=== PATIENT | female | born 1985 | race Caucasian/White ===

== ENCOUNTER 2021-05-22 11:18 | Inpatient (IN) | payer OTHER ==
[2021-05-22] MEDS ORDERED: LORazepam 2 MG/ML INJ IV STA (11:35)
[2021-05-22] MEDS ORDERED: SODIUM CHLORIDE 0.9% 1,000 ML IV STA (11:35)
--- NOTE | 2021-05-22 11:43 | ED ---
Alcohol HPI - General Chief Complaint: Alcohol Stated Complaint: ETOH Time Seen by Provider: 05/22/21 11:25 Source: patient, EMS Mode of arrival: EMS Limitations: altered mental status - History of Present Illness Initial Comments: Patient is a 36-year-old female with history of alcohol abuse, presenting to the emergency department via EMS for alcohol intoxication. Patient states she went to the [facility] last night and has rejected as she was too intoxicated. She presents here this morning to detox so she can go back. Patient states she's only had 2 shots this morning but appears very intoxicated, slurring words. She states she just recently got back from [place] a few weeks ago for detox. She denies any pains anywhere, states she just feels shaky and very anxious. She denies any chest pain or shortness of breath, no abdominal pain, no nausea or vomiting. She denies any falls. She denies any other further complaints. Upon arrival to the ER, her vitals are stable. - Related Data Home Medications Medication Instructions Recorded Confirmed Dextroamphetamine/Amphetamine 10 mg PO BID 05/22/21 05/22/21 [Adderall] LORazepam [Ativan] 1 mg PO DAILY PRN 05/22/21 05/22/21 Allergies Allergy/AdvReac Type Severity Reaction Status Date / Time No Known Allergies Allergy Verified 05/22/21 13:08 Review of Systems ROS Statement: Those systems with pertinent positive or pertinent negative responses have been documented in the HPI. ROS Other: All systems not noted in ROS Statement are negative. Past Medical History Past Medical History: No Reported History History of Any Multi-Drug Resistant Organisms: None Reported Past Surgical History: No Surgical Hx Reported Past Psychological History: ADD/ADHD, Anxiety Smoking Status: Never smoker Past Alcohol Use History: None Reported Past Drug Use History: None Reported General Exam - General Exam Comments Initial Comments: GENERAL: Patient is well-developed and well-nourished. Patient is nontoxic and in no acute distress, appears intoxicated. HEAD: Atraumatic, normocephalic. EYES: Pupils equal round and reactive to light, extraocular movements intact, sclera anicteric, conjunctiva are normal. Eyelids were unremarkable. ENT: TMs normal, nares patent, oropharynx clear without exudates. Moist mucous membranes. NECK: Normal range of motion, supple without lymphadenopathy or JVD. LUNGS: Unlabored respirations. Breath sounds clear to auscultation bilaterally and equal. No wheezes rales or rhonchi. HEART: Regular rate and rhythm without murmurs, rubs or gallops. ABDOMEN: Soft, nontender, normoactive bowel sounds. No guarding, no rebound. No masses appreciated. : Deferred MUSCULOSKELETAL: Normal extremities with adequate strength and normal range of motion, no pitting or edema. No clubbing or cyanosis. NEUROLOGICAL: Patient is alert and oriented x 3. Motor and sensory are also intact. Cranial nerves II through XII grossly intact. Symmetrical smile. PSYCH: Appears intoxicated. SKIN: Warm, Dry, normal turgor, no rashes or lesions noted. Limitations: altered mental status Course Vital Signs 05/22/21 05/22/21 11:22 12:35 Temperature 98.7 F Pulse Rate 104 H 100 Respiratory 22 18 Rate Blood Pressure 115/95 104/72 O2 Sat by Pulse 95 95 Oximetry Medical Decision Making - Medical Decision Making Patient is a 36-year-old female here from the [facility] for alcohol intoxication. She was rejected from there last night and presents today for detox. Her vitals are stable, she has no acute complaints other than feeling shaky and anxious. BAT is .324. Patient's labs show a serum alcohol of 474, transaminitis. She did mention that she's been having thoughts of suicide, she has no plans or attempts. Patient will be admitted for alcohol intoxication, when sober, we'll consult EPS. Patient accepted by Dr. Liriano. Patient discussed with Dr. Easton. - Lab Data Result diagrams: 05/22/21 11:52 05/22/21 11:52 Lab Results 05/22/21 05/22/21 Range/Units 11:52 11:52 WBC 5.0 (3.8-10.6) k/uL RBC 4.92 (3.80-5.40) m/uL Hgb 15.9 (11.4-16.0) gm/dL Hct 46.0 (34.0-46.0) % MCV 93.6 (80.0-100.0) fL MCH 32.3 (25.0-35.0) pg MCHC 34.5 (31.0-37.0) g/dL RDW 13.4 (11.5-15.5) % Plt Count 230 (150-450) k/uL MPV 7.2 Neutrophils % 52 % Lymphocytes % 38 % Monocytes % 6 % Eosinophils % 2 % Basophils % 0 % Neutrophils # 2.6 (1.3-7.7) k/uL Lymphocytes # 1.9 (1.0-4.8) k/uL Monocytes # 0.3 (0-1.0) k/uL Eosinophils # 0.1 (0-0.7) k/uL Basophils # 0.0 (0-0.2) k/uL Sodium 147 H (137-145) mmol/L Potassium 4.1 (3.5-5.1) mmol/L Chloride 103 (98-107) mmol/L Carbon Dioxide 30 (22-30) mmol/L Anion Gap 14 mmol/L BUN 11 (7-17) mg/dL Creatinine 0.48 L (0.52-1.04) mg/dL Est GFR (CKD-EPI)AfAm >90 (>60 ml/min/1.73 sqM) Est GFR (CKD-EPI)NonAf >90 (>60 ml/min/1.73 sqM) Glucose 105 H (74-99) mg/dL Calcium 9.6 (8.4-10.2) mg/dL Total Bilirubin 0.6 (0.2-1.3) mg/dL AST 396 H (14-36) U/L ALT 427 H (4-34) U/L Alkaline Phosphatase 99 (38-126) U/L Total Protein 8.0 (6.3-8.2) g/dL Albumin 4.9 (3.5-5.0) g/dL Serum Alcohol 474 H* mg/dL Disposition Clinical Impression: Alcohol intoxication, Suicidal ideation Disposition: ADMITTED IP TO THIS [facility] Condition: Stable Decision Date: 05/22/21 Decision Time: 12:22
[2021-05-22 12:07] LABS: Basophils % (A) 0 %; Eosinophils # (A) 0.1 k/uL (0-0.7); Eosinophils % (A) 2 %; HGB 15.9 gm/dL (11.4-16.0); Lymphocytes # (A) 1.9 k/uL (1.0-4.8); Lymphocytes % (A) 38 %; MCH 32.3 pg (25.0-35.0); MCHC 34.5 g/dL (31.0-37.0); MCV 93.6 fL (80.0-100.0); Mean Platelet Volume 7.2; Monocytes # (A) 0.3 k/uL (0-1.0); Monocytes % (A) 6 %; Neutrophils # (A) 2.6 k/uL (1.3-7.7); Neutrophils % (A) 52 %; Platelet Count 230 k/uL (150-450); RBC 4.92 m/uL (3.80-5.40); RDW 13.4 % (11.5-15.5)
[2021-05-22] MEDS ORDERED: LORazepam 2 MG/ML INJ IV PRN ×2 (12:19)
[2021-05-22] MEDS ORDERED: THIAMINE 100 MG/ML 2 ML VIAL IM STA (12:19)
[2021-05-22] MEDS ORDERED: ACETAMINOPHEN TAB 325 MG TAB PO PRN (12:20)
[2021-05-22] MEDS ORDERED: ONDANSETRON 4 MG/2 ML VIAL IVP PRN ×2 (12:20→19:04)
[2021-05-22] MEDS ORDERED: NALOXONE 0.4 MG/ML 1 ML VIAL IV PRN (12:20)
[2021-05-22 12:29] LABS: ALT 427 U/L (4-34); AST 396 U/L (14-36); African American GFR (CKD) >90 (>60 ml/min/1.73 sqM); Albumin 4.9 g/dL (3.5-5.0); Alkaline Phosphatase 99 U/L (38-126); Anion Gap 14 mmol/L; Blood Urea Nitrogen 11 mg/dL (7-17); Calcium 9.6 mg/dL (8.4-10.2); Carbon Dioxide 30 mmol/L (22-30); Chloride 103 mmol/L (98-107); Glucose 105 mg/dL (74-99); Non-African American GFR(CKD) >90 (>60 ml/min/1.73 sqM); Potassium 4.1 mmol/L (3.5-5.1); Sodium 147 mmol/L (137-145); Total Bilirubin 0.6 mg/dL (0.2-1.3)
[2021-05-22 13:03] LABS: Alcohol 474 mg/dL
[2021-05-22 13:50] LABS: Appearance,Urine Cloudy (Clear); Bacteria,Urine Rare /hpf; Bilirubin,Urine Negative (Negative); Blood,Urine Negative (Negative); Budding Yeast,Urine Moderate /hpf; Color,Urine Yellow; Glucose,Urine (UA) Negative (Negative); Ketones,Urine Negative (Negative); Leukocyte Esterase,Urine Moderate (Negative); Mucus,Urine Few /hpf; Nitrite,Urine Negative (Negative); PH, Urine 6.5 (5.0-8.0); Protein,Urine Trace (Negative); RBC,Urine 6 /hpf (0-5); Specific Gravity,Urine 1.009 (1.001-1.035); Squamous Epithelial Cell,Urine 18 /hpf (0-4); Urobilinogen,Urine <2.0 mg/dL (<2.0); WBC,Urine 11 /hpf (0-5)
--- NOTE | 2021-05-22 13:54 | P.HPIM ---
History of Present Illness Patient is a pleasant 14-year-old female came in intoxicated earlier today morning with highly elevated blood alcohol levels. Patient wanted to detox and wants to quit alcohol altogether. Patient admits to drinking 1 pint of hard liquor daily. Patient is alert oriented 3 by the time a valid the patient patient is requesting help with alcohol withdrawals. Patient denied any previous withdrawals in the past. Patient denied any abdominal pain nausea vomiting. REVIEW OF SYSTEMS: CONSTITUTIONAL: No fever, no malaise, no fatigue. HEENT: No recent visual problems or hearing problems. Denied any sore throat. CARDIOVASCULAR: No chest pain, orthopnea, PND, no palpitations, no syncope. PULMONARY: No shortness of breath, no cough, no hemoptysis. GASTROINTESTINAL: No diarrhea, no nausea, no vomiting, no abdominal pain. NEUROLOGICAL: No headaches, no weakness, no numbness. HEMATOLOGICAL: Denies any bleeding or petechiae. GENITOURINARY: Denies any burning micturition, frequency, or urgency. MUSCULOSKELETAL/RHEUMATOLOGICAL: Denies any joint pain, swelling, or any muscle pain. ENDOCRINE: Denies any polyuria or polydipsia. The rest of the 14-point review of systems is negative. PHYSICAL EXAMINATION: GENERAL: The patient is alert and oriented x3, not in any acute distress. Well developed, well nourished. HEENT: Pupils are round and equally reacting to light. EOMI. No scleral icterus. No conjunctival pallor. Normocephalic, atraumatic. No pharyngeal erythema. No thyromegaly. CARDIOVASCULAR: S1 and S2 present. No murmurs, rubs, or gallops. PULMONARY: Chest is clear to auscultation, no wheezing or crackles. ABDOMEN: Soft, nontender, nondistended, normoactive bowel sounds. No palpable organomegaly. MUSCULOSKELETAL: No joint swelling or deformity. EXTREMITIES: No cyanosis, clubbing, or pedal edema. NEUROLOGICAL: Gross neurological examination did not reveal any focal deficits. SKIN: No rashes. Assessment and plan -Alcohol abuse: Patient is willing to quit alcohol. -Alcohol withdrawal: Patient will be continued on thiamine multivitamin supplementation and Ativan CW protocol will be monitored for alcohol withdrawal has significant withdrawal symptoms are expected to be tomorrow afternoon, if she doesn't have any withdrawals by then probably can be discharged at that time -Transaminitis: Secondary to alcoholic hepatitis which is expected to improve with cessation of alcohol -Tachycardia secondary to dehydration: Continue with IV fluids DVT prophylaxis: Early ambulation, GI prophylaxis Protonix Past Medical History Past Medical History: No Reported History History of Any Multi-Drug Resistant Organisms: None Reported Past Surgical History: No Surgical Hx Reported Past Psychological History: ADD/ADHD, Anxiety Smoking Status: Never smoker Past Alcohol Use History: None Reported Past Drug Use History: None Reported Medications and Allergies Home Medications Medication Instructions Recorded Confirmed Type Dextroamphetamine/Amphetamine 10 mg PO BID 05/22/21 05/22/21 History [Adderall] LORazepam [Ativan] 1 mg PO DAILY PRN 05/22/21 05/22/21 History Allergies Allergy/AdvReac Type Severity Reaction Status Date / Time No Known Allergies Allergy Verified 05/22/21 13:08 Physical Exam Vitals: Vital Signs Temp Pulse Resp BP Pulse Ox 05/22/21 13:44 108 H 20 106/75 98 05/22/21 13:27 94/67 95 05/22/21 12:35 100 18 104/72 95 05/22/21 11:22 98.7 F 104 H 22 115/95 95 Intake and Output 05/21/21 05/22/21 05/22/21 22:59 06:59 14:59 Other: Weight 72.575 kg Results CBC & Chem 7: 05/22/21 11:52 05/22/21 11:52 Labs: Abnormal Lab Results - Last 24 Hours (Table) 05/22/21 Range/Units 11:52 Sodium 147 H (137-145) mmol/L Creatinine 0.48 L (0.52-1.04) mg/dL Glucose 105 H (74-99) mg/dL AST 396 H (14-36) U/L ALT 427 H (4-34) U/L Serum Alcohol 474 H* mg/dL
[2021-05-22 14:00] LABS: Amphetamine Screen,Urine Not Detected (NotDetected); Barbiturate Screen,Urine Not Detected (NotDetected); Benzodiazepines Screen,Urine Not Detected (NotDetected); Cocaine Screen,Urine Not Detected (NotDetected); Methadone Screen, Urine Not Detected (NotDetected); Opiate Screen,Urine Not Detected (NotDetected); Oxycodone Screen, Urine Not Detected (NotDetected); Phencyclidine Screen,Urine Not Detected (NotDetected); Tricyclic Antidepressant,Urine Not Detected (NotDetected); Urn Cannabinoid Scrn Not Detected (NotDetected)
[2021-05-22] MEDS: SODIUM CHLORIDE 0.9% 1,000 ML IV SCH (14:24)
[2021-05-22] MEDS: LORazepam 2 MG/ML INJ IV PRN ×3 (14:24→22:28)
[2021-05-22] MEDS: PANTOPRAZOLE 40 MG/10 ML VIAL IVP SCH (14:24)
[2021-05-22] MEDS: THIAMINE 100 MG TAB PO SCH (18:26)
[2021-05-23] MEDS: SODIUM CHLORIDE 0.9% 1,000 ML IV SCH ×2 (00:10→07:27)
[2021-05-23 02:15] VITALS: RESP 16
[2021-05-23] MEDS: LORazepam 2 MG/ML INJ IV PRN ×3 (02:27→07:36)
[2021-05-23] MEDS: THIAMINE 100 MG TAB PO SCH (07:18)
[2021-05-23] MEDS: PANTOPRAZOLE 40 MG/10 ML VIAL IVP SCH (07:25)
[2021-05-23] MEDS ORDERED: ONDANSETRON ODT 4 MG TAB PO PRN (09:59)
[2021-05-23] MEDS: LORazepam 1 MG TAB PO PRN ×2 (10:25→14:57)
[2021-05-23 10:27] LABS: ALT 295 U/L (4-34); AST 221 U/L (14-36); African American GFR (CKD) >90 (>60 ml/min/1.73 sqM); Anion Gap 7 mmol/L; Blood Urea Nitrogen 10 mg/dL (7-17); Calcium 8.7 mg/dL (8.4-10.2); Carbon Dioxide 31 mmol/L (22-30); Chloride 97 mmol/L (98-107); Glucose 133 mg/dL (74-99); Non-African American GFR(CKD) >90 (>60 ml/min/1.73 sqM); Potassium 3.4 mmol/L (3.5-5.1); Sodium 135 mmol/L (137-145)
[2021-05-23] MEDS ORDERED: POTASSIUM CHLORIDE ER 20 MEQ TAB.ER PO STA (12:20)
[2021-05-23] MEDS ORDERED: CITALOPRAM HYDROBROMIDE 10 MG TAB PO SCH (12:30)
[2021-05-23] MEDS: chlordiazePOXIDE 25 MG CAP PO SCH ×2 (12:34→14:57)
[2021-05-23 15:05] VITALS: BP 116/80; PULSE 121; TEMP 98.8
--- NOTE | 2021-05-24 03:08 | P.DS ---
Providers Date of admission: 05/22/21 12:16 Expected date of discharge: 05/23/21 Attending physician: Ofelia Liriano Primary care physician: Marina Stokes Hospital Course: Final diagnosis -Alcohol abuse -Alcohol withdrawal -Transaminitis: Secondary to alcoholic hepatitis which is expected to improve with cessation of alcohol -Tachycardia secondary to dehydration -Anxiety -full code Discharge disposition Patient is being discharged in a stable condition with guarded prognosis to home. Patient will follow-up with Dr. Stokes upon discharge. Patient will also be returning to [facility] on discharge for admission for alcohol rehab. Total time taken is greater than 35 minutes. Hospital Course This is a 36-year-old female who was recently admitted with acute alcohol intoxication with acute withdrawals and was being closely monitored. Patient was maintained on CIWA protocol and states that she takes Ativan 1mg daily at home for anxiety and will continue. Gave a script for librium taper on discharge and patient refused. Patient is going to [facility] for alcohol rehab. Currently no reports of chest pain, shortness of breath, or palpitations. Patient is afebrile. No reports of nausea or vomiting and patient is tolerating diet. Patient will be discharged to [facility] today. On exam vital signs are stable. Cardio S1, S2 are muffled. Respiratory shows diminished breath sounds at the bases with no wheezing or rhonchi noted. Abdomen is soft and nontender. Nervous system shows no focal deficits. Please refer to medication reconciliation sheet for a list of medications. Patient Condition at Discharge: Stable Plan - Discharge Summary Discharge Rx Participant: Yes New Discharge Prescriptions: New Citalopram Hydrobromide [CeleXA] 10 mg PO DAILY #30 tab Thiamine [Vitamin B-1] 100 mg PO BID-W/MEALS #60 tab Ondansetron Odt [Zofran ODT] 4 mg PO Q8HR PRN #12 tab PRN Reason: Nausea chlordiazePOXIDE HCl [Librium] 25 mg PO TID #12 cap Acetaminophen Tab [Tylenol] 650 mg PO Q6HR PRN tab PRN Reason: Mild Pain Or Fever > 100.5 Continue LORazepam [Ativan] 1 mg PO DAILY PRN PRN Reason: Anxiety Dextroamphetamine/Amphetamine [Adderall] 10 mg PO BID Discharge Medication List Dextroamphetamine/Amphetamine [Adderall] 10 mg PO BID 05/22/21 [History] LORazepam [Ativan] 1 mg PO DAILY PRN 05/22/21 [History] Acetaminophen Tab [Tylenol] 650 mg PO Q6HR PRN tab 05/23/21 [Rx] Citalopram Hydrobromide [CeleXA] 10 mg PO DAILY #30 tab 05/23/21 [Rx] Ondansetron Odt [Zofran ODT] 4 mg PO Q8HR PRN #12 tab 05/23/21 [Rx] Thiamine [Vitamin B-1] 100 mg PO BID-W/MEALS #60 tab 05/23/21 [Rx] chlordiazePOXIDE HCl [Librium] 25 mg PO TID #12 cap 05/23/21 [Rx] Follow up Appointment(s)/Referral(s): Marina Stokes MD [Primary Care Provider] - 1-2 days (please call [phone] on Wednesday to schedule an appointment) Patient Instructions/Handouts: Abuse of Alcohol (DC) Activity/Diet/Wound Care/Special Instructions: RN to call [facility] [phone] at d/c to give report and request a ride for the pt. Patient to continue with alcohol rehab at [facility] Continue with Librium taper of 25 mg 3 times daily for 2 days, then 25 mg twice daily for 2 days, then 25 mg daily for 2 days and then may discontinue Avoid alcohol continue current diet follow up with primary care provider upon discharge Recommend repeat labs to monitor liver function testing in the outpatient setting with primary care provider Discharge Disposition: OTHER INSTITUTION NOT DEFINED
== END 2021-05-23 15:51 | DRG 897 ==
LOC: EC 11:18 → 5NMEDONC 12:16 → 4SSUR 20:10
PROVIDERS: ADMIT Internal Medicine; ATTEND Internal Medicine
DX: F10.239 Alcohol dependence with withdrawal, unspecified (principal); R45.851 Suicidal ideations; F41.9 Anxiety disorder, unspecified; F90.9 Attention-deficit hyperactivity disorder, unspecified type; Y90.8 Blood alcohol level of 240 mg/100 ml or more; F10.229 Alcohol dependence with intoxication, unspecified; K70.10 Alcoholic hepatitis without ascites; E86.0 Dehydration; R00.0 Tachycardia, unspecified; R74.01 Elevation of levels of liver transaminase levels; Z79.899 Other long term (current) drug therapy
CPT/HCPCS: 36415; 80048; 80053; 80306; 80320; 81001; 81025; 84450; 84460; 85025; 87086; 96361; 96374; 99285